=== PATIENT | female | born 1945 | race Caucasian/White ===

== ENCOUNTER 2017-11-14 21:31 | Emergency (ER) | payer MEDICARE ==
--- NOTE | 2017-11-14 23:32 | EDM.PDOC ---
ED HPI GENERAL MEDICAL PROBLEM - General Chief Complaint: Lower Extremity Injury/Pain Stated Complaint: FELL-LEG Time Seen by Provider: 11/14/17 22:32 Source of Information: Reports: Patient History Limitations: Reports: No Limitations - History of Present Illness INITIAL COMMENTS - FREE TEXT/NARRATIVE: Pt. presents to ER with complaints of R lower leg pain. She states that she tripped in her garage and did not strike head. Denies any injury other than what is isolated to R proximal lower leg. Denies paresthesia to the extremity. Denies any issues with pain in this area in the past. Onset: Today Onset Date: 11/14/17 Onset Time: 17:00 Location: Reports: Lower Extremity, Right Quality: Reports: Throbbing Right Knee/Leg Pain Score (Numeric/FACES): 5 - Related Data Allergies Allergy/AdvReac Type Severity Reaction Status Date / Time benzocaine Allergy Rash Verified 11/14/17 22:31 aspirin AdvReac Acid Reflux Verified 11/14/17 22:31 Home Meds: Home Meds Cetirizine [ZyrTEC] 10 mg PO DAILY 08/04/13 [History] Estazolam [Prosom] 1 mg PO ACBED 08/04/13 [History] Flaxseed [Numoisyn] 30 ml PO DAILY 08/04/13 [History] Multivitamin [Multi-Vitamin Daily] 1 each PO 08/04/13 [History] Barton-3 Fatty Acids [Barton-3] 1,200 mg PO 08/04/13 [History] Triamcinolone Acetonide [Triamcinolone Acetonide 0.1% Crm] 1 applic TOP BID 07/15 [History] Cyclobenzaprine [Flexeril] 10 mg PO TID PRN 08/25/13 [History] Past Medical History Cardiovascular History: Reports: High Cholesterol Oncologic (Cancer) History: Reports: Breast - Past Surgical History HEENT Surgical History: Reports: Tonsillectomy GI Surgical History: Reports: Other (See Below) Other GI Surgeries/Procedures: Bowel surgery Female Surgical History: Reports: Other (See Below) Other Female Surgeries/Procedures: Breast lumpectomy Oncologic Surgical History: Reports: Lumpectomy Social & Family History - Tobacco Use Smoking Status *Q: Never Smoker Second Hand Smoke Exposure: Yes - Recreational Drug Use Recreational Drug Use: No Review of Systems - Review of Systems Review Of Systems: See Below Constitutional: Reports: No Symptoms Eyes: Reports: No Symptoms Ears: Reports: No Symptoms Nose: Reports: No Symptoms Mouth/Throat: Reports: No Symptoms Respiratory: Reports: No Symptoms Cardiovascular: Reports: No Symptoms GI/Abdominal: Reports: No Symptoms Genitourinary: Reports: No Symptoms Musculoskeletal: Reports: Leg Pain (see HPI), Joint Pain Skin: Reports: No Symptoms Neurological: Reports: No Symptoms Psychiatric: Reports: No Symptoms ED EXAM, GENERAL - Physical Exam Exam: See Below Extremities: Normal Range of Motion, Normal Capillary Refill, Other (tenderness and abrasion to R lower leg, no obvious deformity noted. CMS intact. ROM intact but limited by pain.) Course - Vital Signs Last Recorded V/S: Last Vital Signs Temp 36.9 C 11/14/17 22:32 Pulse 76 11/14/17 22:32 Resp 16 11/14/17 22:32 BP 174/80 H 11/14/17 22:32 Pulse Ox 94 L 11/14/17 22:32 - Orders/Labs/Meds Orders: Active Orders 24 hr Category Date Time Status Tibia Fibula Rt [CR] Stat Exams 11/14/17 22:39 Taken Departure - Departure Time of Disposition: 23:10 Disposition: Home, Self-Care 01 Clinical Impression: Contusion, knee and lower leg - Discharge Information Instructions: Knee Pain, Adult Referrals: PCP,Unknown [Primary Care Provider] - Forms: ED Department Discharge Additional Instructions: Ice knee/leg for 10-15 min every 1-2 hours. Tylenol and ibuprofen as needed for pain. Elevate the leg. Follow-up in the clinic in 5-7 days if still having discomfort. - My Orders Last 24 Hours: My Active Orders 11/14/17 22:39 Tibia Fibula Rt [CR] Stat - Assessment/Plan Last 24 Hours: My Active Orders 11/14/17 22:39 Tibia Fibula Rt [CR] Stat
== END 2017-11-14 23:25 | disposition home or self-care (01) ==
LOC: VM.ED 21:31
DX: S80.02XA Contusion of left knee, initial encounter (principal); Z88.8 Allergy status to other drugs, medicaments and biological substances; Z79.899 Other long term (current) drug therapy; W01.0XXA Fall on same level from slipping, tripping and stumbling without subsequent striking against object, initial encounter
CPT/HCPCS: 73590-RT; 99283

== ENCOUNTER 2023-09-21 10:24 | Day surgery (SDC) | payer MEDICARE ==
[~2023-09-21 10:24] MED LIST: Lactated Ringers 1,000 ML IV SCH
[2023-09-21] MEDS: Lactated Ringers 1,000 ML IV SCH (10:38)
[2023-09-21] MEDS ORDERED: Propofol 200 MG/20 ML SDV ONE (11:48)
[2023-09-21] MEDS ORDERED: fentaNYL 100 MCG/2 ML SDV ONE (11:49)
[2023-09-21] MEDS ORDERED: Midazolam 1 MG/ML 2 ML SDV ONE (11:49)
[2023-09-21] MEDS: Ondansetron 4 MG/2 ML SDV IVPUSH ONE (12:39)
== END 2023-09-21 13:30 | disposition home or self-care (01) ==
LOC: VM.SDS 10:24
PROVIDERS: ATTEND Surgery
DX: K57.30 Diverticulosis of large intestine without perforation or abscess without bleeding (principal); E78.5 Hyperlipidemia, unspecified; F41.9 Anxiety disorder, unspecified; Z85.038 Personal history of other malignant neoplasm of large intestine; Z90.49 Acquired absence of other specified parts of digestive tract; Z79.899 Other long term (current) drug therapy; Z88.8 Allergy status to other drugs, medicaments and biological substances; Z86.010 Personal history of colon polyps
CPT/HCPCS: J2250; J2405; J2704; J3010; J7120

== ENCOUNTER 2025-04-06 17:22 | Emergency (ER) | payer MEDICARE | END 2025-04-06 18:50 | disposition home or self-care (01) | LOC: VM.ED 17:22 | DX: S01.81XA Laceration without foreign body of other part of head, initial encounter (principal); Z88.8 Allergy status to other drugs, medicaments and biological substances; Z88.5 Allergy status to narcotic agent; Z88.6 Allergy status to analgesic agent; Z79.899 Other long term (current) drug therapy; Z90.49 Acquired absence of other specified parts of digestive tract; Z90.89 Acquired absence of other organs; W01.198A Fall on same level from slipping, tripping and stumbling with subsequent striking against other object, initial encounter | CPT/HCPCS: 12011; 99282 ==